=== PATIENT | female | born 1960 | race Caucasian/White ===

== ENCOUNTER → 2016-03-01 | Outpatient (CLI) | payer MEDICARE, MEDICAID ==
[2016-03-01 19:15] LABS: CREATININE FOR GFR 1.03 MG/DL (0.55-1.02); GLOMERULAR FILTRATION RATE 59.7 (>51); POTASSIUM SERUM 4.3 MEQ/L (3.5-5.1)
== END ==
LOC: M SMT 15:14
PROVIDERS: ATTEND Physician Assistant Medical
DX: N18.3 Chronic kidney disease, stage 3 (moderate) (principal)

== ENCOUNTER → 2016-06-13 | Outpatient (CLI) | payer MEDICARE, MEDICAID ==
--- NOTE | 2016-06-13 16:47 | REP ---
MRI left ankle without contrast: History: Decreased range of motion and pain. Possible tendon tear. Comparison radiographs of the right foot are from May 14, 2014. Technique: Axial, coronal and sagittal imaging planes utilized for T1, proton density and T2-weighted scans obtained in the usual fashion with and without fat saturation. MRI findings: There is a regional marrow edema pattern in the lateral aspect of the anterior calcaneus. This may reflect stress response. No overt fracture is seen. There is evidence of pes planus. There is marrow edema on either side of an osteoarthritic talonavicular articulation and the naviculocuboid articulation is similarly affected with joint space narrowing, irregularity and marrow edema. The tibial plafond and the talar dome appear intact. No osteochondral defect lesion is seen. There is small subcortical cyst formation in the medial aspect of the posterior talus. No ligament disruption is appreciated. There is marked attenuation or thinning of the distal tibialis posterior tendon consistent with a chronic tear. The flexor digitorum and flexor hallicis longus tendons appear to be intact. Peroneus longus and brevis tendons are unremarkable. No extensor tendinopathy is seen. The Achilles tendon shows some internal increased signal intensity on T1 and T2-weighted scans consistent with Achilles tendinopathy. No juxtaarticular cyst or mass is observed. Impression: 1. 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 2. Stress reaction or stress response marrow edema in the lateral aspect of the calcaneus. 3. Marked thinning of the distal tibialis posterior tendon consistent with chronic tear advanced tendinopathy. 4. Achilles tendonitis tendinosis change. Signed by Damián Iqbal MD 06/13/2016 05:09 P
== END ==
LOC: M RAD 14:17
PROVIDERS: ATTEND Podiatrist
DX: M19.071 Primary osteoarthritis, right ankle and foot (principal); M76.62 Achilles tendinitis, left leg

== ENCOUNTER → 2016-07-04 | Outpatient (CLI) | payer MEDICARE, MEDICAID ==
[2016-07-04 21:13] LABS: ALBUMIN 4.3 GM/DL (3.2-5.2); ALBUMIN/GLOBULIN RATIO 1.95 (1.00-1.93); BILIRUBIN,TOTAL 0.2 MG/DL (0.2-1.0); CALCIUM LEVEL 9.1 MG/DL (8.5-10.1); CREATININE FOR GFR 1.24 MG/DL (0.55-1.02); FREE T4 1.41 NG/DL (0.76-1.46); GLOMERULAR FILTRATION RATE 48.2 (>51); POTASSIUM SERUM 4.7 MEQ/L (3.5-5.1); TOTAL PROTEIN 6.5 GM/DL (6.4-8.2)
== END ==
LOC: M SMT 13:39
PROVIDERS: ATTEND Physician Assistant Medical
DX: E78.5 Hyperlipidemia, unspecified (principal); E66.9 Obesity, unspecified

== ENCOUNTER → 2016-08-03 | Outpatient (REF) | payer MEDICARE, MEDICAID ==
[2016-08-03 17:34] LABS: ALBUMIN 4.4 GM/DL (3.2-5.2); ALBUMIN/GLOBULIN RATIO 1.83 (1.00-1.93); BILIRUBIN,TOTAL 0.3 MG/DL (0.2-1.0); CALCIUM LEVEL 8.8 MG/DL (8.5-10.1); CREATININE FOR GFR 1.27 MG/DL (0.55-1.02); GLOMERULAR FILTRATION RATE 46.9 (>51); TOTAL PROTEIN 6.8 GM/DL (6.4-8.2)
[2016-08-03 17:40] LABS: POTASSIUM SERUM 5.2 MEQ/L (3.5-5.1)
== END ==
LOC: M SFHCPLAZ 11:24
PROVIDERS: ATTEND Physician Assistant Medical
DX: N18.3 Chronic kidney disease, stage 3 (moderate) (principal)

== ENCOUNTER → 2016-08-31 | Outpatient (REF) | payer MEDICARE, MEDICAID ==
[2016-08-31 13:59] LABS: ALBUMIN 3.9 GM/DL (3.2-5.2); ALBUMIN/GLOBULIN RATIO 1.5 (1.00-1.93); BILIRUBIN,TOTAL 0.3 MG/DL (0.2-1.0); CREATININE FOR GFR 1.07 MG/DL (0.55-1.02); GLOMERULAR FILTRATION RATE 56.9 (>51); POTASSIUM SERUM 4.3 MEQ/L (3.5-5.1); TOTAL PROTEIN 6.5 GM/DL (6.4-8.2)
== END ==
LOC: M SFHCPLAZ 09:37
PROVIDERS: ATTEND Physician Assistant Medical
DX: E78.5 Hyperlipidemia, unspecified (principal); N18.3 Chronic kidney disease, stage 3 (moderate)

== ENCOUNTER → 2016-10-03 | Outpatient (REF) | payer MEDICARE, MEDICAID ==
[2016-10-03 16:51] LABS: BASO % 0.6 % (0.0-1.0); EOS # 0.1 K/mm3 (0.0-0.50); EOS % 2.5 % (0.0-3.0); LARGE UNSTAINED CELL # 0.1 K/mm3 (0.0-0.4); LARGE UNSTAINED CELL % 1.5 % (0.0-4.0); LYMPH # 1.5 K/mm3 (1.5-4.5); LYMPH % 29.8 % (24.0-44.0); MEAN CORPUSCULAR HEMOGLOBIN 31.8 pg (27.0-33.0); MEAN CORPUSCULAR HGB CONC 33.2 g/dl (32.0-36.5); MEAN CORPUSCULAR VOLUME 95.9 fl (80.0-96.0); MONO # 0.5 K/mm3 (0.0-0.8); MONO % 10.5 % (0.0-5.0); NEUTROPHILS # 2.7 K/mm3 (1.8-7.7); NEUTROPHILS % 55.1 % (36.0-66.0); PLATELET COUNT, AUTOMATED 250 k/mm3 (150-450); WHITE BLOOD COUNT 4.9 K/mm3 (4.0-10.0)
[2016-10-03 18:43] LABS: MAGNESIUM LEVEL 2.3 MG/DL (1.8-2.4)
[2016-10-05 13:51] LABS: ANION GAP 11 MEQ/L (8-16); BLOOD UREA NITROGEN 13 MG/DL (7-18); CALCIUM LEVEL 8.7 MG/DL (8.5-10.1); CARBON DIOXIDE LEVEL 25 MEQ/L (21-32); CHLORIDE LEVEL 106 MEQ/L (98-107); CREATININE FOR GFR 0.98 MG/DL (0.55-1.02); GLOMERULAR FILTRATION RATE > 60.0 (>51); GLUCOSE, FASTING 77 MG/DL (70-105); SODIUM LEVEL 142 MEQ/L (136-145)
== END ==
LOC: M SFHCPLAZ 11:33
PROVIDERS: ATTEND Physician Assistant Medical
DX: N18.3 Chronic kidney disease, stage 3 (moderate) (principal); E55.9 Vitamin D deficiency, unspecified
CPT/HCPCS: 80048; 82306; 83735; 83970; 85025; G0463

== ENCOUNTER → 2016-10-10 | Outpatient (CLI) | payer MEDICARE, MEDICAID ==
--- NOTE | 2016-10-10 16:03 | REP ---
Renal and bladder ultrasound: The right kidney is normal size measuring 11.6 x 4.5 x 4.9 cm. Left kidney is in the low normal size range measuring 9.9 x 6.0 x 5.5 cm. Renal cortical echogenicity is normal bilaterally. There is no hydronephrosis on the right on the left. There are no renal calculi, masses or cysts on the right on the left. Impression: Essentially negative renal ultrasound. Bladder ultrasound: The bladder is incompletely distended cannot be evaluated at this time. Signed by Xander Hester MD 10/10/2016 03:54 P
== END ==
LOC: M RAD 14:09
PROVIDERS: ATTEND Physician Assistant Medical
DX: N18.3 Chronic kidney disease, stage 3 (moderate) (principal)

== ENCOUNTER → 2017-03-21 | Outpatient (CLI) | payer MEDICARE, MEDICAID | LOC: M RAD 13:00 | DX: M76.72 Peroneal tendinitis, left leg (principal); M76.822 Posterior tibial tendinitis, left leg | CPT/HCPCS: 73721 ==

== ENCOUNTER → 2017-04-20 | Outpatient (REF) | payer MEDICARE, MEDICAID ==
[2017-04-20 18:03] LABS: TOTAL 25(OH) VITAMIN D 86.5 NG/ML (30.0-100.0)
[2017-04-20 18:03] LABS: PTH INTACT 39.1 PG/ML (18.5-88.0)
== END ==
LOC: M SFHCPLAZ 15:34
DX: E55.9 Vitamin D deficiency, unspecified (principal)
CPT/HCPCS: 82306

== ENCOUNTER → 2017-11-19 | Outpatient (CLI) | payer MEDICARE, MEDICAID ==
[2017-11-19 17:49] LABS: HEMATOCRIT 38.6 % (36.0-47.0); HEMOGLOBIN 12.5 g/dl (12.0-15.5); MEAN CORPUSCULAR HEMOGLOBIN 30.3 pg (27.0-33.0); MEAN CORPUSCULAR HGB CONC 32.4 g/dl (32.0-36.5); MEAN CORPUSCULAR VOLUME 93.5 fl (80.0-96.0); PLATELET COUNT, AUTOMATED 252 10^3/uL (150-450); RED BLOOD COUNT 4.13 10^6/uL (4.00-5.40); RED CELL DISTRIBUTION WIDTH 13.1 % (11.5-14.5); WHITE BLOOD COUNT 7.2 10^3/uL (4.0-10.0)
[2017-11-19 17:59] LABS: PROTHROMBIN TIME 12.2 SECONDS (12.1-14.4)
[2017-11-19 18:00] LABS: PARTIAL THROMBOPLASTIN TIME 27.8 SECONDS (25.4-37.6)
[2017-11-19 18:01] LABS: ALBUMIN 4.2 GM/DL (3.2-5.2); ALBUMIN/GLOBULIN RATIO 1.56 (1.00-1.93); ALKALINE PHOSPHATASE 45 U/L (45-117); ALT/SGPT 21 U/L (12-78); ANION GAP 8 MEQ/L (8-16); AST/SGOT 20 U/L (7-37); BILIRUBIN,TOTAL 0.3 MG/DL (0.2-1.0); BLOOD UREA NITROGEN 28 MG/DL (7-18); CALCIUM LEVEL 9.1 MG/DL (8.5-10.1); CARBON DIOXIDE LEVEL 27 MEQ/L (21-32); CHLORIDE LEVEL 109 MEQ/L (98-107); CREATININE FOR GFR 1.17 MG/DL (0.55-1.30); GLOMERULAR FILTRATION RATE 51.1 (>51); GLUCOSE, FASTING 83 MG/DL (70-100); POTASSIUM SERUM 4.2 MEQ/L (3.5-5.1); SODIUM LEVEL 144 MEQ/L (136-145); TOTAL PROTEIN 6.9 GM/DL (6.4-8.2)
[2017-11-19 18:23] LABS: TOTAL 25(OH) VITAMIN D 80.1 NG/ML (30.0-100.0)
== END ==
LOC: M SMT 14:15
DX: Z01.818 Encounter for other preprocedural examination (principal); S93.305 Unspecified dislocation of left foot; E55.9 Vitamin D deficiency, unspecified; E66.01 Morbid (severe) obesity due to excess calories; Z68.51 Body mass index [BMI] pediatric, less than 5th percentile for age
CPT/HCPCS: 80053

== ENCOUNTER → 2017-12-07 | Outpatient (REF) | payer MEDICARE, MEDICAID ==
[2017-12-07 17:36] LABS: BASO % 0.5 % (0.0-1.0); EOS # 0.2 10^3/uL (0.0-0.50); EOS % 2.4 % (0.0-3.0); HEMATOCRIT 37.4 % (36.0-47.0); HEMOGLOBIN 12.2 g/dl (12.0-15.5); IMMATURE GRANULOCYTE % 0.4 % (0-3.0); LYMPH # 1.8 10^3/uL (1.5-4.5); LYMPH % 23.3 % (24.0-44.0); MEAN CORPUSCULAR HGB CONC 32.6 g/dl (32.0-36.5); MEAN CORPUSCULAR VOLUME 94.9 fl (80.0-96.0); MONO # 0.9 10^3/uL (0.0-0.8); MONO % 11.1 % (0.0-5.0); NEUTROPHILS # 4.9 10^3/uL (1.8-7.7); NEUTROPHILS % 62.3 % (36.0-66.0); PLATELET COUNT, AUTOMATED 237 10^3/uL (150-450); RED BLOOD COUNT 3.94 10^6/uL (4.00-5.40); RED CELL DISTRIBUTION WIDTH 13.2 % (11.5-14.5); WHITE BLOOD COUNT 7.8 10^3/uL (4.0-10.0)
[2017-12-07 17:54] LABS: INR 0.84; PROTHROMBIN TIME 11.6 SECONDS (12.1-14.4)
[2017-12-07 17:55] LABS: PARTIAL THROMBOPLASTIN TIME 26.9 SECONDS (25.4-37.6)
[2017-12-07 17:59] LABS: ALBUMIN 4.3 GM/DL (3.2-5.2); ALBUMIN/GLOBULIN RATIO 1.65 (1.00-1.93); ALKALINE PHOSPHATASE 45 U/L (45-117); ALT/SGPT 23 U/L (12-78); ANION GAP 9 MEQ/L (8-16); AST/SGOT 22 U/L (7-37); BILIRUBIN,TOTAL 0.3 MG/DL (0.2-1.0); BLOOD UREA NITROGEN 20 MG/DL (7-18); CALCIUM LEVEL 9.3 MG/DL (8.5-10.1); CARBON DIOXIDE LEVEL 27 MEQ/L (21-32); CHLORIDE LEVEL 109 MEQ/L (98-107); CREATININE FOR GFR 0.96 MG/DL (0.55-1.30); GLOMERULAR FILTRATION RATE > 60.0 (>51); GLUCOSE, FASTING 78 MG/DL (70-100); SODIUM LEVEL 145 MEQ/L (136-145); TOTAL PROTEIN 6.9 GM/DL (6.4-8.2)
[2017-12-13 08:39] LABS: COTININE None Detected (.); NICOTINE None Detected (.)
== END ==
LOC: M SFHCPLAZ 16:03
DX: Z01.818 Encounter for other preprocedural examination (principal); M21.42 Flat foot [pes planus] (acquired), left foot; M19.072 Primary osteoarthritis, left ankle and foot; Z79.899 Other long term (current) drug therapy
CPT/HCPCS: 80053

== ENCOUNTER 2017-12-26 05:54 | Inpatient (IN) | payer MEDICARE, MEDICAID ==
[2017-12-26] MEDS: LR 1,000 ML IV ×3 (06:50→14:30)
[2017-12-26] MEDS ORDERED: MIDAZOLAM INJ 2 MG/2 ML VIAL (J2250) As Ordered ×2 (07:01→08:15)
[2017-12-26] MEDS ORDERED: fentaNYL 100 MCG/2 ML INJECTION (J3010) As Ordered (07:01)
[2017-12-26] MEDS: MIDAZOLAM INJ 2 MG/2 ML VIAL (J2250) IV (07:17)
[2017-12-26] MEDS: fentaNYL 100 MCG/2 ML INJECTION (J3010) IV (07:17)
[2017-12-26] MEDS ORDERED: dexameTHASONE 4 MG/ML 1ML VIAL (J1100) As Ordered (08:15)
[2017-12-26] MEDS ORDERED: ROCURONIUM BROMIDE 50 MG/5 ML VIAL As Ordered (08:15)
[2017-12-26] MEDS ORDERED: ePHEDrine SULFATE 25 MG/5 ML(5MG/ML) SYRINGE As Ordered (08:15)
[2017-12-26] MEDS ORDERED: PHENYLephrine HCL 500 MCG/5 ML (100MCG/ML) SYRINGE (J2370) As Ordered ×2 (08:15→12:54)
[2017-12-26] MEDS ORDERED: PROPOFOL 200 MG/20 ML VIAL As Ordered ×3 (08:15→13:41)
[2017-12-26] MEDS ORDERED: fentaNYL 250 MCG/5 ML INJECTION (J3010) As Ordered (08:15)
[2017-12-26] MEDS ORDERED: LIDOCAINE 2% INJ 100 MG/5 ML SDV (FOR ANES.) As Ordered (08:15)
[2017-12-26] MEDS ORDERED: ONDANSETRON 4MG/2ML VIAL (J2405) As Ordered (08:15)
[2017-12-26] MEDS ORDERED: ePHEDrine INJ 50 MG/ML VIAL As Ordered (08:16)
[2017-12-26] MEDS ORDERED: HYDROmorphone HCL 2 MG/ML 1ML VIAL (J1170) As Ordered (09:54)
[2017-12-26] MEDS ORDERED: ROPIvacaine 0.5% 30 ML INJECTION (J2795 PER 1MG) (10:17)
[2017-12-26] MEDS ORDERED: dexameTHASONE 10 MG/1 ML VIAL PRES.FREE (J1100) (10:17)
[2017-12-26] MEDS ORDERED: LIDOCAINE 1% MDV 20ML VIAL (10:17)
[2017-12-26] MEDS ORDERED: NEOSTIGMINE 10 MG/10 ML VIAL (J2710) As Ordered (10:25)
[2017-12-26] MEDS ORDERED: GLYCOPYRROLATE INJ 0.2 MG/ML 2 ML VIAL As Ordered ×2 (10:25→10:26)
[2017-12-26] MEDS: ceFAZolin 2 GM/D5W 50 ML IV BAG (J0690 PER 500MG) As Ordered (12:00)
[2017-12-26] MEDS ORDERED: ONDANSETRON 4MG/2ML VIAL (J2405) IV (14:15)
[2017-12-26] MEDS ORDERED: METOCLOPRAMIDE INJ 10MG/2ML VIAL (J2765) IV (14:15)
[2017-12-26] MEDS ORDERED: fentaNYL 100 MCG/2 ML INJECTION (J3010) IV (14:15)
[2017-12-26] MEDS ORDERED: HYDROMORPHONE HCL 0.5 MG/ 0.5 ML SYRINGE (J1170 PER 1) IV (14:15)
[2017-12-26] MEDS ORDERED: FLEET ENEMA PR (14:30)
[2017-12-26] MEDS ORDERED: MORPHINE 4 MG/ML 1ML VIAL/SYRINGE (J2270) IV ×2 (14:30)
[2017-12-26] MEDS: ENDOCET PO (21:12)
[2017-12-26] MEDS: tiZANidine 4 MG TAB PO (23:23)
[2017-12-26] MEDS: GABAPENTIN 300 MG CAP PO (23:23)
[2017-12-27] MEDS: LR 1,000 ML IV (01:46)
[2017-12-27 06:55] LABS: HEMATOCRIT 31.5 % (36.0-47.0); MEAN CORPUSCULAR HEMOGLOBIN 30.9 pg (27.0-33.0); MEAN CORPUSCULAR HGB CONC 31.7 g/dl (32.0-36.5); MEAN CORPUSCULAR VOLUME 97.2 fl (80.0-96.0); PLATELET COUNT, AUTOMATED 198 10^3/uL (150-450); RED BLOOD COUNT 3.24 10^6/uL (4.00-5.40); RED CELL DISTRIBUTION WIDTH 13.3 % (11.5-14.5); WHITE BLOOD COUNT 9.5 10^3/uL (4.0-10.0)
[2017-12-27 07:20] LABS: ANION GAP 8 MEQ/L (8-16); BLOOD UREA NITROGEN 12 MG/DL (7-18); CALCIUM LEVEL 8.6 MG/DL (8.5-10.1); CARBON DIOXIDE LEVEL 29 MEQ/L (21-32); CHLORIDE LEVEL 109 MEQ/L (98-107); CREATININE FOR GFR 0.94 MG/DL (0.55-1.30); GLOMERULAR FILTRATION RATE > 60.0 (>51); GLUCOSE, FASTING 96 MG/DL (70-100); POTASSIUM SERUM 3.5 MEQ/L (3.5-5.1); SODIUM LEVEL 146 MEQ/L (136-145)
[2017-12-27] MEDS: GABAPENTIN 300 MG CAP PO ×2 (08:28→09:00)
[2017-12-27] MEDS: ENDOCET PO ×2 (08:29→13:07)
[2017-12-27] MEDS: tiZANidine 4 MG TAB PO ×2 (08:29→09:00)
[2017-12-27] MEDS ORDERED: GABAPENTIN 300 MG CAP PO (09:00)
[2017-12-27] MEDS ORDERED: ENTER DRUG NAME HERE (PATIENT'S OWN MED) PO ×2 (09:00)
[2017-12-27] MEDS ORDERED: tiZANidine 4 MG TAB PO (09:00)
[2017-12-27] MEDS: LISINOPRIL 10 MG TAB PO (09:47)
[2017-12-27] MEDS: BISACODYL 5 MG TAB PO (09:48)
[2017-12-27] MEDS: OMEPRAZOLE 20 MG CAP PO (09:48)
[2017-12-27] MEDS: VITAMIN D 1,000 INTERNATIONAL UNITS TABLET PO (09:48)
[2017-12-27] MEDS ORDERED: RIVAROXABAN 10 MG TAB (XARELTO) PO (18:00)
[2017-12-27] MEDS ORDERED: EZETIMIBE 10 MG TAB (ZETIA) PO (21:00)
[2017-12-27] MEDS ORDERED: SIMVASTATIN 40 MG TAB PO (21:00)
[2017-12-28] MEDS ORDERED: ENTER DRUG NAME HERE (PATIENT'S OWN MED) PO (09:00)
== END 2017-12-27 16:30 | disposition home or self-care (01) | DRG 505 ==
LOC: M OR 05:54 → M MS5PR 14:50
PROC: 0SGJ04Z Fusion of Left Tarsal Joint with Internal Fixation Device, Open Approach (ICD-10-PCS; principal; 2017-12-26 07:30)
PROC: 0SGJ07Z Fusion of Left Tarsal Joint with Autologous Tissue Substitute, Open Approach (ICD-10-PCS; 2017-12-26 07:30)
PROC: 0SBJ0ZZ Excision of Left Tarsal Joint, Open Approach (ICD-10-PCS; 2017-12-26 07:30)
DX: M21.42 Flat foot [pes planus] (acquired), left foot (principal); K44.9 Diaphragmatic hernia without obstruction or gangrene; I12.9 Hypertensive chronic kidney disease with stage 1 through stage 4 chronic kidney disease, or unspecified chronic kidney disease; M17.0 Bilateral primary osteoarthritis of knee; E55.9 Vitamin D deficiency, unspecified; E78.5 Hyperlipidemia, unspecified; N18.3 Chronic kidney disease, stage 3 (moderate); J30.9 Allergic rhinitis, unspecified; M84.472D Pathological fracture, left ankle, subsequent encounter for fracture with routine healing; G47.33 Obstructive sleep apnea (adult) (pediatric); Z96.653 Presence of artificial knee joint, bilateral; Z87.891 Personal history of nicotine dependence; Z88.5 Allergy status to narcotic agent; Z88.8 Allergy status to other drugs, medicaments and biological substances

== ENCOUNTER → 2018-03-01 | Outpatient (REF) | payer MEDICARE, MEDICAID ==
[~2018-03-01] MED LIST: DULC5TAB PO; ENDO5TAB PO; EZET1TAB10 PO; EZET1TAB7 PO; GABA-843 PO; INDOCET PO; LISI10TA4 PO; OMEP40CA2 PO; OXAP600T PO; TIZA4CAP PO; TYLE-45 PO; VITA50005 PO; XARE10TA PO
[2018-03-01 16:57] LABS: BASO # 0.1 10^3/uL (0.0-0.2); BASO % 0.7 % (0.0-1.0); EOS # 0.2 10^3/uL (0.0-0.50); EOS % 2.8 % (0.0-3.0); HEMATOCRIT 35.7 % (36.0-47.0); HEMOGLOBIN 11.5 g/dl (12.0-15.5); LYMPH % 25.8 % (24.0-44.0); MEAN CORPUSCULAR HEMOGLOBIN 29.9 pg (27.0-33.0); MEAN CORPUSCULAR HGB CONC 32.2 g/dl (32.0-36.5); MONO # 0.8 10^3/uL (0.0-0.8); MONO % 9.8 % (0.0-5.0); NEUTROPHILS # 4.6 10^3/uL (1.8-7.7); NEUTROPHILS % 60.1 % (36.0-66.0); PLATELET COUNT, AUTOMATED 230 10^3/uL (150-450); RED BLOOD COUNT 3.84 10^6/uL (4.00-5.40); WHITE BLOOD COUNT 7.6 10^3/uL (4.0-10.0)
[2018-03-01 17:23] LABS: ERYTHROCYTE SEDIMENTATION RATE 14 mm/hr (0-30)
== END ==
LOC: M LABDRAW1 15:50
PROVIDERS: ATTEND Orthopaedic Surgery
DX: Z47.89 Encounter for other orthopedic aftercare (principal)

== ENCOUNTER → 2018-03-21 | Outpatient (REF) | payer MEDICARE, MEDICAID | LOC: M LABDRAW1 16:10 | PROVIDERS: ATTEND Orthopaedic Surgery | DX: Z47.89 Encounter for other orthopedic aftercare (principal) ==

== ENCOUNTER → 2018-05-28 | Outpatient (CLI) | payer MEDICARE, MEDICAID ==
[2018-05-28 18:00] LABS: ALBUMIN 4.3 GM/DL (3.2-5.2); BILIRUBIN,TOTAL 0.3 MG/DL (0.2-1.0); CALCIUM LEVEL 9.3 MG/DL (8.5-10.1); CREATININE FOR GFR 1.11 MG/DL (0.55-1.30); GLOMERULAR FILTRATION RATE 54.3 (>51); POTASSIUM SERUM 4.3 MEQ/L (3.5-5.1); TOTAL PROTEIN 6.5 GM/DL (6.4-8.2)
[2018-05-28 18:09] LABS: PTH INTACT 38.2 PG/ML (18.5-88.0); TOTAL 25(OH) VITAMIN D 88.3 NG/ML (30.0-100.0)
[2018-05-28 18:24] LABS: HEMOGLOBIN A1c 6.1 %
== END ==
LOC: M SMT 15:53
PROVIDERS: ATTEND Physician Assistant Medical
DX: N18.3 Chronic kidney disease, stage 3 (moderate) (principal); E66.9 Obesity, unspecified; E55.9 Vitamin D deficiency, unspecified

== ENCOUNTER → 2018-06-05 | Outpatient (CLI) | payer MEDICARE, MEDICAID ==
--- NOTE | 2018-06-05 15:15 | REP ---
Bilateral lower extremity Doppler venous reflux study: right left CFV Reflux no yes Ant. Acc. GSV Present no no Reflux no no Greater saph/fem junction 6.0 mm no 8.3 mm yes Greater saph vein mid thigh 5.7 mm no 5.6 mm yes Greater saph vein at knee 4.8 mm minimal 5.0 mm yes Greater saph vein below knee -- mm -- -- mm -- SFV PROX -- mm no -- mm minimal SFV MID -- mm no -- mm yes SFV DISTAL -- mm yes -- mm minimal POPLITEAL VEIN -- mm no -- mm no LSV 3 mm no 3.1 mm no Right lower extremity: There is significant reflux below the knee with deep system reflux at the distal superficial femoral vein. No reflux above this level. There is no reflux in the greater saphenous vein at the mid calf. Left lower extremity: There is significant greater saphenous vein reflux only with the patient bed tipped, not visible one the patient standing, likely because the hydrostatic pressure is too high. There is deep system reflux throughout. Electronically Signed by Xander Hester MD 06/05/2018 03:07 P
== END ==
LOC: M RAD 12:44
PROVIDERS: ATTEND Physician Assistant
DX: T81.30XA Disruption of wound, unspecified, initial encounter (principal); Y83.8 Other surgical procedures as the cause of abnormal reaction of the patient, or of later complication, without mention of misadventure at the time of the procedure; I87.9 Disorder of vein, unspecified

== ENCOUNTER → 2018-07-12 | Outpatient (CLI) | payer MEDICARE, MEDICAID ==
[~2018-07-12] MED LIST changes: +ISOVUE-370 76% 100ML VIAL (Q9967) As Ordered ONE
--- NOTE | 2018-07-12 17:00 | REP ---
CT abdomen and pelvis with IV, dual-phase post injection imaging. No oral contrast. History: Venous insufficiency. Rule out May-Thurner syndrome. CT technique: Helical scanning is acquired at portal venous phase and delayed venous phase timed acquisitions. 100 ml of intravenous Isovue [address] findings: Preliminary digital steam frame operator radiograph demonstrates a normal bowel gas pattern. The lung bases are essentially clear. The liver and the spleen are normal in size homogeneous in texture. Gallbladder is surgically absent. The CBD post cholecystectomy is normal measuring 8 mm in diameter. No pancreatic abnormality is seen. There appears to be a descending duodenal diverticulum. The spleen is unremarkable. No adrenal lesion is seen. The kidneys enhance symmetrically are morphologically intact. There is no evidence of portal venous or mesenteric venous thrombosis. No retroperitoneal mass or adenopathy is seen. The iliac arteries are normal in caliber with atherosclerotic calcification. The iliac veins are located immediately posterior to their iliac arterial counter parts right and left side. Neither common iliac vein is compressed on either side to suggest a May-Thurner syndrome. The external iliac veins appear patent and normal and symmetric in caliber. Common femoral veins are unremarkable and symmetric. No abdominal wall defect is seen. Small and large bowel loops are unremarkable. Uterus is surgically absent. Urinary bladder is unremarkable. No ovarian abnormality is seen on either side. Impression: There is no evidence of vascular compression of either common iliac vein. Aortic bifurcation and iliac venous confluence structures are unremarkable. The patient is status post cholecystectomy and hysterectomy. Electronically Signed by Damián Iqbal MD 07/12/2018 06:34 P
== END ==
LOC: M RAD 13:18
PROVIDERS: ATTEND Surgery Vascular Surgery
DX: Z90.49 Acquired absence of other specified parts of digestive tract (principal); Z90.79 Acquired absence of other genital organ(s)
CPT/HCPCS: 74177; Q9967

== ENCOUNTER → 2018-09-03 | Outpatient (REF) | payer MEDICARE, MEDICAID ==
[~2018-09-03] MED LIST changes: -ISOVUE-370 76% 100ML VIAL (Q9967) As Ordered ONE
[2018-09-03 16:22] LABS: ALBUMIN 4.6 GM/DL (3.2-5.2); BILIRUBIN,TOTAL 0.3 MG/DL (0.2-1.0); CALCIUM LEVEL 9.8 MG/DL (8.5-10.1); CREATININE FOR GFR 1.19 MG/DL (0.55-1.30); POTASSIUM SERUM 4.4 MEQ/L (3.5-5.1); TOTAL PROTEIN 7.6 GM/DL (6.4-8.2)
[2018-09-03 16:44] LABS: PTH INTACT 47.6 PG/ML (18.5-88.0); TOTAL 25(OH) VITAMIN D 60.2 NG/ML (30.0-100.0)
[2018-09-03 17:38] LABS: HEMOGLOBIN A1c 6.1 %
== END ==
LOC: M SFHCPLAZ 14:34
PROVIDERS: ATTEND Physician Assistant Medical
DX: R60.9 Edema, unspecified (principal); R73.01 Impaired fasting glucose; E55.9 Vitamin D deficiency, unspecified
CPT/HCPCS: 36415; 80053; 82306; 83036; 83970; G0463

== ENCOUNTER → 2018-12-04 | Outpatient (REF) | payer MEDICARE, MEDICAID ==
[2018-12-04 15:57] LABS: ALBUMIN 4.3 GM/DL (3.2-5.2); BILIRUBIN,TOTAL 0.4 MG/DL (0.2-1.0); CALCIUM LEVEL 9.2 MG/DL (8.5-10.1); CHOLESTEROL RISK RATIO 2.593 (<5); CREATININE FOR GFR 1.42 MG/DL (0.55-1.30); GLOMERULAR FILTRATION RATE 40.7 (>51); POTASSIUM SERUM 4.6 MEQ/L (3.5-5.1); TOTAL PROTEIN 6.7 GM/DL (6.4-8.2)
== END ==
LOC: M SFHCPLAZ 14:49
PROVIDERS: ATTEND Physician Assistant Medical
DX: E78.5 Hyperlipidemia, unspecified (principal); R73.01 Impaired fasting glucose; R60.9 Edema, unspecified; R07.81 Pleurodynia

== ENCOUNTER → 2018-12-04 | Outpatient (CLI) | payer MEDICARE, MEDICAID ==
[~2018-12-04] MED LIST changes: -EZET1TAB7 PO; +EZET1TAB8 PO; -OMEP40CA2 PO; +OMEP40CA97 PO
--- NOTE | 2018-12-04 19:42 | REP ---
LEFT RIB SERIES: Four views of the left ribs are performed. The study is limited due to patient body habitus. No gross fracture or bone lesion is seen. IMPRESSION: Grossly negative left rib series. Electronically Signed by Xander Lowe MD 12/06/2018 09:09 A
--- NOTE | 2018-12-04 19:44 | REP ---
CHEST, TWO VIEWS: Two views of the chest is performed. I see no evidence of acute infiltrate. There appears to be mild bibasilar fibrotic change. I suspect a nodular density in the left upper lobe 1.2 cm in diameter. Heart is not enlarged. Mediastinal silhouette appears unremarkable. There are diffuse degenerative changes of the spine. IMPRESSION: Possible left upper lobe nodule 1.2 cm in diameter. Recommend CT of the chest to further evaluate. Electronically Signed by Xander Lowe MD 12/06/2018 09:09 A
== END ==
LOC: M RAD 18:35
PROVIDERS: ATTEND Physician Assistant Medical
DX: R07.81 Pleurodynia (principal); I12.9 Hypertensive chronic kidney disease with stage 1 through stage 4 chronic kidney disease, or unspecified chronic kidney disease; N18.3 Chronic kidney disease, stage 3 (moderate); R73.01 Impaired fasting glucose
CPT/HCPCS: 36415; 71046; 71100; 80053; 80061; 83036; 85379; G0463

== ENCOUNTER → 2018-12-05 | Outpatient (CLI) | payer MEDICARE, MEDICAID ==
[~2018-12-05] MED LIST changes: +ISOVUE-370 76% 100ML VIAL (Q9967) As Ordered ONE
--- NOTE | 2018-12-05 09:09 | REP ---
CT of the chest with IV contrast, CT pulmonary angiography: There are no emboli in the pulmonary trunk or central pulmonary arteries. There are no emboli in the pulmonary lobe or segment branches. There are no infiltrates. No pleural effusions. There is a left upper lobe 11 mm nodule on image 22 corresponding to the faintly visible nodular density on the PA and lateral plain film study of 12/04/2018. There is no mediastinal, hilar or axillary lymphadenopathy. The thoracic aorta is unremarkable. Cardiac size is normal. There is no pericardial effusion. The visualized upper abdominal contents are unremarkable. There are no rib fractures. There is osteoarthritis in the left costovertebral joints at T10 and T11. At T10 there is gas within the joint space has a degenerative change. I believe there is a minimal amount of gas in the T11 joint space. Impression: No pulmonary emboli. Left upper lobe lung nodule as described. No infiltrates or pleural effusions. Osteoarthritis in the costovertebral joints at T11 and T10 on the left. There is gas within both of these joint spaces as a degenerative change. There is degenerative disc disease throughout the thoracic spine. Electronically Signed by Xander Hester MD 12/05/2018 09:01 A
== END ==
LOC: M RAD 07:41
PROVIDERS: ATTEND Physician Assistant Medical
DX: R91.1 Solitary pulmonary nodule (principal); M47.814 Spondylosis without myelopathy or radiculopathy, thoracic region; N18.3 Chronic kidney disease, stage 3 (moderate); R07.81 Pleurodynia
CPT/HCPCS: 71275; Q9967

== ENCOUNTER → 2018-12-11 | Outpatient (REF) | payer MEDICARE, MEDICAID ==
[~2018-12-11] MED LIST changes: -ISOVUE-370 76% 100ML VIAL (Q9967) As Ordered ONE
[2018-12-11 17:22] LABS: BASO % 0.7 % (0.0-1.0); EOS # 0.1 10^3/uL (0.0-0.5); EOS % 1.2 % (0.0-3.0); HEMATOCRIT 37.1 % (36.0-47.0); LYMPH # 1.7 10^3/uL (1.5-5.0); LYMPH % 27.7 % (24.0-44.0); MEAN CORPUSCULAR HEMOGLOBIN 30.5 pg (27.0-33.0); MEAN CORPUSCULAR HGB CONC 32.3 g/dl (32.0-36.5); MEAN CORPUSCULAR VOLUME 94.2 fl (80.0-96.0); MONO # 0.7 10^3/uL (0.0-0.8); MONO % 10.7 % (0.0-5.0); NEUTROPHILS # 3.6 10^3/uL (1.5-8.5); NEUTROPHILS % 59.4 % (36.0-66.0); PLATELET COUNT, AUTOMATED 225 10^3/uL (150-450); RED BLOOD COUNT 3.94 10^6/uL (4.00-5.40); WHITE BLOOD COUNT 6.1 10^3/uL (4.0-10.0)
== END ==
LOC: M SFHCPLAZ 13:57
PROVIDERS: ATTEND Physician Assistant Medical
DX: G25.81 Restless legs syndrome (principal); M99.02 Segmental and somatic dysfunction of thoracic region
CPT/HCPCS: 36415; 83735; 85025; 98927; G0463

== ENCOUNTER → 2019-02-14 | Outpatient (CLI) | payer MEDICARE, MEDICAID ==
[~2019-02-14] MED LIST changes: +ISOVUE-370 76% 100ML VIAL (Q9967) As Ordered ONE
--- NOTE | 2019-02-14 19:00 | REP ---
HISTORY: Followup lung nodule. COMPARISON: 12/05/2018. CONTRAST: 100 mL Isovue-370 Mediastinum and pulmonary avi are unchanged. There is no evidence of a mass or adenopathy. There is no change in the imaged upper abdomen or imaged osseous structures. Evaluation of the lung schulte shows a slightly irregular 1.1 x 0.7 cm size nodule. There are chronic bilateral lung base changes. There are no pleural or pericardial effusions. IMPRESSION: There is a nodule in the left upper lobe as described above. Although it does not appear to have increased in size significantly compared to the prior examination which was obtained only two months ago, the margins of the nodule may have changed, increasing its suspicion. CT/PET is recommended. Electronically Signed by Stanislaw Patterson DO 02/14/2019 07:34 P
== END ==
LOC: M RAD 16:48
PROVIDERS: ATTEND Physician Assistant Medical
DX: R91.1 Solitary pulmonary nodule (principal)
CPT/HCPCS: 71260; Q9967

== ENCOUNTER → 2019-02-17 | Outpatient (CLI) | payer MEDICARE, MEDICAID ==
[~2019-02-17] MED LIST changes: -ISOVUE-370 76% 100ML VIAL (Q9967) As Ordered ONE
--- NOTE | 2019-02-20 09:14 | REPMRS ---
Patient History The patient states she has not had a clinical breast exam in over a year. Patient is postmenopausal and is nulliparous. Family history of endometrial cancer at age 50 in mother, colorectal cancer at age 89 in mother, endometrial cancer at age 45 in sister. 3D TOMOSYNTHESIS WAS PERFORMED. The [facility] lifetime risk for breast cancer is 6.4%. Digital Woman Screen Mammo: February 17, 2019 - Exam #: [id number] Bilateral CC and MLO view(s) were taken. Technologist: Liliya Bella, Technologist Prior study comparison: September 01, 2016, bilateral digital mammo screening bilat, performed at [facility]. FINDINGS: There are scattered fibroglandular densities. There has been no change in the appearance of the mammogram from the prior studies. There is a mild amount of residual fibroglandular tissue which is fairly symmetric. There is no interval development of dominant mass, architectural distortion, or clustered microcalcification suggestive of malignancy. Assessment: BI-RADS/ACR category 1 mammogram. Negative Mammogram. Recommendation Routine screening mammogram in 1 year (for women over age 40). This mammogram was interpreted with the aid of an FDA-approved computer-aided dectection system. Electronically Signed By: Xander Lowe MD 02/20/19 [id number]
== END ==
LOC: M WHC 13:36
PROVIDERS: ATTEND Physician Assistant Medical
DX: Z12.31 Encounter for screening mammogram for malignant neoplasm of breast (principal)

== ENCOUNTER → 2019-03-05 | Outpatient (CLI) | payer MEDICARE, MEDICAID ==
[~2019-03-05] MED LIST changes: +ASPI81TA85 PO; +ENDO10TA8 PO; +GUAI1TAB72 PO
== END ==
LOC: M PLARAD 12:08
PROVIDERS: ATTEND Physician Assistant Medical
DX: R91.1 Solitary pulmonary nodule (principal)

== ENCOUNTER → 2019-03-25 | Outpatient (CLI) | payer MEDICARE, MEDICAID ==
--- NOTE | 2019-03-25 18:34 | REP ---
Whole body PET CT scan: The studies performed to evaluate a left upper lobe lung nodule identified by CT on 12/05/2018. Whole body PET CT scanning is performed from skull base to the upper thighs. Neck and supraclavicular areas: There are no hypermetabolic foci. There is artifactual uptake in lymph nodes, salivary glands and dentition anteriorly in the mouth. Chest: The there is no radiotracer uptake in the left upper lobe lung nodule. The maximal standard uptake value is 1.4. There are no other hypermetabolic foci in the chest. Abdomen, pelvis and upper thighs: There are no hypermetabolic foci. Specifically there are no adrenal or hepatic foci. The study is technically difficult because of patient body habitus. Impression: There are no hypermetabolic foci. The right upper lobe lung nodule demonstrates no radiotracer uptake. The study is performed with 8.57 mCi of F 18 FDG. Electronically Signed by Xander Hester MD 03/25/2019 06:25 P
== END ==
LOC: M PLARAD 09:59
PROVIDERS: ATTEND Physician Assistant Medical
DX: R91.1 Solitary pulmonary nodule (principal)
CPT/HCPCS: 78815; A9552

== ENCOUNTER → 2019-04-30 | Outpatient (REF) | payer MEDICARE, MEDICAID ==
[2019-04-30 17:25] LABS: ALBUMIN 4.3 GM/DL (3.2-5.2); BILIRUBIN,TOTAL 0.3 MG/DL (0.2-1.0); CREATININE FOR GFR 1.44 MG/DL (0.55-1.30); GLOMERULAR FILTRATION RATE 40.1 (>51); POTASSIUM SERUM 4.9 MEQ/L (3.5-5.1); TOTAL PROTEIN 6.8 GM/DL (6.4-8.2)
[2019-04-30 17:32] LABS: TOTAL 25(OH) VITAMIN D 55.5 NG/ML (30.0-100.0)
[2019-04-30 17:33] LABS: PTH INTACT 94.2 PG/ML (18.5-88.0)
[2019-04-30 17:35] LABS: HEMOGLOBIN A1c 6.2 %
== END ==
LOC: M SFHCPLAZ 14:04
PROVIDERS: ATTEND Physician Assistant Medical
DX: R73.01 Impaired fasting glucose (principal); E55.9 Vitamin D deficiency, unspecified
CPT/HCPCS: 36415; 80053; 82306; 83036; 83970; G0463

== ENCOUNTER → 2019-09-02 | Outpatient (REF) | payer MEDICARE, MEDICAID ==
[2019-09-02 17:53] LABS: ALBUMIN 4.4 GM/DL (3.2-5.2); BILIRUBIN,TOTAL 0.3 MG/DL (0.2-1.0); CALCIUM LEVEL 9.4 MG/DL (8.5-10.1); CREATININE FOR GFR 1.53 MG/DL (0.55-1.30); GLOMERULAR FILTRATION RATE 37.2 (>51); POTASSIUM SERUM 4.8 MEQ/L (3.5-5.1); TOTAL PROTEIN 6.9 GM/DL (6.4-8.2)
[2019-09-02 18:00] LABS: PTH INTACT 100.8 PG/ML (18.5-88.0); TOTAL 25(OH) VITAMIN D 38.7 NG/ML (30.0-100.0)
[2019-09-02 18:23] LABS: HEMOGLOBIN A1c 6.2 %
== END ==
LOC: M SFHCPLAZ 15:42
PROVIDERS: ATTEND Physician Assistant Medical
DX: N18.3 Chronic kidney disease, stage 3 (moderate) (principal); R73.01 Impaired fasting glucose; E55.9 Vitamin D deficiency, unspecified

== ENCOUNTER → 2019-09-16 | Outpatient (CLI) | payer MEDICARE, MEDICAID ==
[~2019-09-16] MED LIST changes: -ASPI81TA85 PO; +ASPI81TA86 PO; +ISOVUE-370 76% 100ML VIAL As Ordered ONE
--- NOTE | 2019-09-16 10:17 | REP ---
Clinical: Follow-up pulmonary nodule. Technique: Axial contrast enhanced images from the thoracic inlet to the upper abdomen using 75 ml Isovue 370 intravenous contrast material coronal and sagittal re-formations. Comparison: 02/14/2019. Findings: 11 mm noncalcified nodule in the left upper lobe remains stable. Minimal chronic fibroatelectatic changes at the bilateral bases and primarily involving the medial right middle lobe and lingula remain unchanged. No acute consolidation, new nodule or mass lesion. No effusion. No pneumothorax. Tracheobronchial tree is patent. No adenopathy. The mediastinum demonstrates normal / stable thoracic aorta, pulmonary vasculature, and heart/pericardium. Limited upper abdomen demonstrates normal bilateral adrenal glands. Surrounding musculoskeletal structures demonstrate degenerative changes without acute osseous abnormality. Impression: Stable 11 mm noncalcified nodule in the left upper lobe and scattered chronic fibroatelectatic changes. No new or significant mediastinal / pleuroparenchymal process. Electronically Signed by Jeronimo Pepper MD 09/16/2019 10:09 A
== END ==
LOC: M RAD 08:34
PROVIDERS: ATTEND Physician Assistant Medical
DX: R91.1 Solitary pulmonary nodule (principal)
CPT/HCPCS: 71260; Q9967

== ENCOUNTER → 2019-11-26 | Outpatient (CLI) | payer MEDICARE, MEDICAID ==
[~2019-11-26] MED LIST changes: -ISOVUE-370 76% 100ML VIAL As Ordered ONE
== END ==
LOC: M LABSMTC 12:35
PROVIDERS: ATTEND Anesthesiology
DX: Z01.812 Encounter for preprocedural laboratory examination (principal); Z20.828 Contact with and (suspected) exposure to other viral communicable diseases
CPT/HCPCS: C9803; U0003

== ENCOUNTER 2019-12-01 11:42 | Day surgery (SDC) | payer MEDICARE, MEDICAID ==
[~2019-12-01] VITALS: Ht 157.5 cm; Wt 156.5 kg
[2019-12-01] MEDS ORDERED: NS 1,000 ML IV ONE (12:15)
[2019-12-01] MEDS ORDERED: propofoL 200 MG/20 ML VIAL As Ordered ONE (13:16)
[2019-12-01] MEDS ORDERED: LIDOCAINE 2% 100MG/5ML SDV (FOR ANES.) As Ordered ONE (13:16)
--- NOTE | 2019-12-01 13:38 | ROOR ---
Patient Name: Cely Steve Procedure Date: 12/01/2019 1:06 PM Date of : 1960 Age: 59 Room: [facility] Gender: Female Note Status: Finalized Procedure: Total Colonoscopy to cecum + Bx. Indications: High risk colon cancer surveillance: Personal history of colonic polyps Providers: Jose River MD Referring MD: Miriam WILDER Requesting Provider: Medicines: Monitored Anesthesia Care Complications: No immediate complications. Procedure: Pre-Anesthesia Assessment: - The heart rate, respiratory rate, oxygen saturations, blood pressure, adequacy of pulmonary ventilation, and response to care were monitored throughout the procedure. The Colonoscope was introduced through the anus and advanced to the cecum, identified by appendiceal orifice and ileocecal valve. The colonoscopy was performed without difficulty. The patient tolerated the procedure well. The quality of the bowel preparation was good. Findings: The perianal and digital rectal examinations were normal. Non-bleeding internal hemorrhoids were found during retroflexion. The hemorrhoids were small and Grade I (internal hemorrhoids that do not prolapse). A large polyp was found at 70 cm proximal to the anus. The polyp was carpet-like. Biopsies were taken with a cold forceps for histology. The exam was otherwise without abnormality on direct and retroflexion views. Impression: - Non-bleeding internal hemorrhoids. - One large polyp at 70 cm proximal to the anus. Biopsied. - The examination was otherwise normal on direct and retroflexion views. - The exam was otherwise normal to the cecum. Recommendation: - Patient has a contact number available for emergencies. The signs and symptoms of potential delayed complications were discussed with the patient. Return to normal activities tomorrow. Written discharge instructions were provided to the patient. - Resume previous diet. - Discharge patient to home. - Continue present medications. - Await pathology results. - Telephone GI clinic for pathology results in 1 week. - Refer to a surgeon at appointment to be scheduled. - The findings and recommendations were discussed with the patient. Jose River MD Jose River MD 12/01/2019 1:38:06 PM Electronically signed by Jose River MD Number of Addenda: 0 Note Initiated On: 12/01/2019 1:06 PM Estimated Blood Loss: Estimated blood loss: none.
[2019-12-01 14:03] VITALS: BP 146/87
== END 2019-12-01 14:10 | disposition home or self-care (01) ==
LOC: M OPP 11:42
PROVIDERS: ATTEND Internal Medicine Gastroenterology
DX: Z12.11 Encounter for screening for malignant neoplasm of colon (principal); Z86.010 Personal history of colon polyps; D12.6 Benign neoplasm of colon, unspecified; K64.0 First degree hemorrhoids; I10 Essential (primary) hypertension; E78.5 Hyperlipidemia, unspecified; K58.9 Irritable bowel syndrome, unspecified; R12 Heartburn; M79.7 Fibromyalgia; F32.9 Major depressive disorder, single episode, unspecified; G47.33 Obstructive sleep apnea (adult) (pediatric); Z87.891 Personal history of nicotine dependence; Z88.5 Allergy status to narcotic agent; Z88.8 Allergy status to other drugs, medicaments and biological substances; Z91.018 Allergy to other foods; Z79.899 Other long term (current) drug therapy

== ENCOUNTER → 2020-03-18 | Outpatient (REF) | payer MEDICARE, MEDICAID ==
[~2020-03-18] MED LIST changes: +GABA-282 PO; -GABA-843 PO; +LISI10TA22 PO; -LISI10TA4 PO
[2020-03-18 17:41] LABS: HEMOGLOBIN A1c 5.9 %
[2020-03-18 17:54] LABS: PTH INTACT 98.9 PG/ML (18.5-88.0); TOTAL 25(OH) VITAMIN D 50.9 NG/ML (30.0-100.0)
== END ==
LOC: M PLALAB 14:15
PROVIDERS: ATTEND Physician Assistant Medical
DX: R73.01 Impaired fasting glucose (principal); E55.9 Vitamin D deficiency, unspecified; M67.442 Ganglion, left hand; Z79.899 Other long term (current) drug therapy

== ENCOUNTER → 2020-03-18 | Outpatient (CLI) | payer MEDICARE, MEDICAID ==
[2020-03-18 17:42] LABS: CREATININE FOR GFR 1.81 MG/DL (0.55-1.30); GLOMERULAR FILTRATION RATE 30.7 (>51)
== END ==
LOC: M PLALAB 14:15
PROVIDERS: ATTEND Orthopaedic Surgery
DX: M67.442 Ganglion, left hand (principal)

== ENCOUNTER → 2020-05-26 | Outpatient (REF) | payer MEDICARE, MEDICAID ==
[2020-05-26 15:31] LABS: BASO # 0.1 10^3/uL (0.0-0.2); BASO % 0.9 % (0.0-1.0); EOS # 0.1 10^3/uL (0.0-0.5); EOS % 1.9 % (0.0-3.0); HEMATOCRIT 39.9 % (36.0-47.0); HEMOGLOBIN 12.4 g/dl (12.0-15.5); LYMPH # 1.8 10^3/uL (1.5-5.0); LYMPH % 25.7 % (24.0-44.0); MEAN CORPUSCULAR HEMOGLOBIN 29.5 pg (27.0-33.0); MEAN CORPUSCULAR HGB CONC 31.1 g/dl (32.0-36.5); MONO # 0.7 10^3/uL (0.0-0.8); MONO % 10.3 % (2.0-8.0); NEUTROPHILS # 4.2 10^3/uL (1.5-8.5); NEUTROPHILS % 61.1 % (36.0-66.0); PLATELET COUNT, AUTOMATED 232 10^3/uL (150-450); WHITE BLOOD COUNT 6.8 10^3/uL (4.0-10.0)
[2020-05-26 16:01] LABS: ALBUMIN 4.3 GM/DL (3.2-5.2); BILIRUBIN,TOTAL 0.2 MG/DL (0.2-1.0); CALCIUM LEVEL 9.5 MG/DL (8.5-10.1); CREATININE FOR GFR 1.24 MG/DL (0.55-1.30); GLOMERULAR FILTRATION RATE 47.5 (>51); POTASSIUM SERUM 4.7 MEQ/L (3.5-5.1); TOTAL PROTEIN 6.8 GM/DL (6.4-8.2)
[2020-05-26 16:06] LABS: PTH INTACT 59.2 PG/ML (18.5-88.0)
[2020-05-26 16:16] LABS: TOTAL 25(OH) VITAMIN D 51.1 NG/ML (30.0-100.0)
== END ==
LOC: M SFHCPLAZ 14:09
PROVIDERS: ATTEND Physician Assistant Medical
DX: E55.9 Vitamin D deficiency, unspecified (principal); N18.30 Chronic kidney disease, stage 3 unspecified

== ENCOUNTER → 2020-08-18 | Outpatient (CLI) | payer MEDICARE, MEDICAID ==
[~2020-08-18] MED LIST changes: +ERGO500029 PO; -EZET1TAB10 PO; -EZET1TAB8 PO; +EZET1TAB98 PO; +OMEP40CA4 PO; -OMEP40CA97 PO; +[UNRECOGNIZED DRUG - CODE] PO
--- NOTE | 2020-08-18 15:29 | REPVR ---
PROCEDURE INFORMATION: Exam: CT Thoracic Spine Without Contrast Exam date and time: 08/18/2020 2:35 PM Age: 59 years old Clinical indication: Other: Spondylosis TECHNIQUE: Imaging protocol: Computed tomography images of the thoracic spine without contrast. Radiation optimization: All CT scans at this facility use at least one of these dose optimization techniques: automated exposure control; mA and/or kV adjustment per patient size (includes targeted exams where dose is matched to clinical indication); or iterative reconstruction. COMPARISON: PT PET/CT Skull/mid thigh 03/25/2019 12:49 PM FINDINGS: Vertebrae: Levoscoliosis. Osteopenia. Schmorl's nodes and vertebral endplate irregularity. Discs/Spinal canal/Neural foramina: Multilevel degenerative change and vacuum discs. Soft tissues: Unremarkable appearance of the paraspinous soft tissues. IMPRESSION: Levoscoliosis, Schmorl's nodes, degenerative change, and vacuum discs. Electronically signed by: Ino Fabian On 08/18/2020 15:28:46 PM
--- NOTE | 2020-08-18 15:33 | REPVR ---
PROCEDURE INFORMATION: Exam: CT Lumbar Spine Without Contrast Exam date and time: 08/18/2020 2:35 PM Age: 59 years old Clinical indication: Other: Spondylosis TECHNIQUE: Imaging protocol: Computed tomography images of the lumbar spine without contrast. Radiation optimization: All CT scans at this facility use at least one of these dose optimization techniques: automated exposure control; mA and/or kV adjustment per patient size (includes targeted exams where dose is matched to clinical indication); or iterative reconstruction. COMPARISON: PT PET/CT Skull/mid thigh 03/25/2019 12:49 PM FINDINGS: Vertebrae: No acute bony injury or malalignment. Discs/Spinal canal/Neural foramina: Multilevel spinal stenosis in association with disc bulging, degenerative change, ligamentous hypertrophy. Note that assessment of disc, spinal cord, and nerve root pathology is limited in the absence of intrathecal contrast. Multilevel vacuum discs. Soft tissues: Calcification and hypertrophy of the ligamentum flavum. IMPRESSION: Multilevel spinal stenosis in association with disc bulging, degenerative change, ligamentous hypertrophy. Electronically signed by: Ino Fabian On 08/18/2020 15:32:41 PM
== END ==
LOC: M RAD 14:17
PROVIDERS: ATTEND Physician Assistant Medical
DX: M47.816 Spondylosis without myelopathy or radiculopathy, lumbar region (principal)

== ENCOUNTER → 2020-09-01 | Outpatient (CLI) | payer MEDICARE, MEDICAID ==
[2020-09-01 17:28] LABS: BASO % 0.3 % (0.0-1.0); EOS # 0.1 10^3/uL (0.0-0.5); EOS % 0.6 % (0.0-3.0); HEMATOCRIT 43.2 % (36.0-47.0); HEMOGLOBIN 13.4 g/dl (12.0-15.5); LYMPH # 2.6 10^3/uL (1.5-5.0); LYMPH % 25.9 % (24.0-44.0); MEAN CORPUSCULAR HEMOGLOBIN 29.2 pg (27.0-33.0); MEAN CORPUSCULAR VOLUME 94.1 fl (80.0-96.0); MONO % 9.9 % (2.0-8.0); NEUTROPHILS # 6.4 10^3/uL (1.5-8.5); NEUTROPHILS % 62.6 % (36.0-66.0); PLATELET COUNT, AUTOMATED 255 10^3/uL (150-450); RED BLOOD COUNT 4.59 10^6/uL (4.00-5.40); WHITE BLOOD COUNT 10.2 10^3/uL (4.0-10.0)
[2020-09-01 17:46] LABS: ALBUMIN 4.2 GM/DL (3.2-5.2); ALT/SGPT 67 U/L (12-78); BILIRUBIN,TOTAL 0.4 MG/DL (0.2-1.0); BLOOD UREA NITROGEN 30 MG/DL (7-18); CALCIUM LEVEL 9.3 MG/DL (8.5-10.1); CARBON DIOXIDE LEVEL 30 MEQ/L (21-32); CHLORIDE LEVEL 104 MEQ/L (98-107); CREATININE FOR GFR 1.41 MG/DL (0.55-1.30); GLOMERULAR FILTRATION RATE 40.8 (>51); GLUCOSE, FASTING 76 MG/DL (70-100); POTASSIUM SERUM 4.2 MEQ/L (3.5-5.1); RHEUMATOID FACTOR QUANT < 10.0 IU/ML (<15.0); SODIUM LEVEL 143 MEQ/L (136-145); TOTAL PROTEIN 7.4 GM/DL (6.4-8.2)
[2020-09-01 17:57] LABS: HEMOGLOBIN A1c 5.9 %
[2020-09-01 17:58] LABS: ERYTHROCYTE SEDIMENTATION RATE 6 mm/hr (0-30)
[2020-09-07 21:12] LABS: ANA (HEP2) Negative (.); CYCLIC CITRULLINATED PEPTIDE 5 units (0-19); HLA-B27 Negative (.)
== END ==
LOC: M PLALAB 11:29
PROVIDERS: ATTEND Physician Assistant Medical
DX: M51.36 Other intervertebral disc degeneration, lumbar region (principal); M47.816 Spondylosis without myelopathy or radiculopathy, lumbar region; E66.9 Obesity, unspecified; Z79.899 Other long term (current) drug therapy
CPT/HCPCS: 36415; 80053; 81374; 83036; 85025; 85652; 86038; 86140; 86200; 86431; G0463

== ENCOUNTER → 2020-12-01 | Outpatient (CLI) | payer MEDICARE, MEDICAID ==
[2020-12-01 16:25] LABS: CALCIUM LEVEL 9.5 MG/DL (8.5-10.1); CREATININE FOR GFR 1.34 MG/DL (0.55-1.30); GLOMERULAR FILTRATION RATE 43.2 (>51); POTASSIUM SERUM 4.7 MEQ/L (3.5-5.1)
== END ==
LOC: M PLALAB 11:42
PROVIDERS: ATTEND Physician Assistant Medical
DX: R91.8 Other nonspecific abnormal finding of lung field (principal)
CPT/HCPCS: 36415; 80048; G0463

== ENCOUNTER → 2020-12-06 | Outpatient (CLI) | payer MEDICARE, MEDICAID ==
[~2020-12-06] MED LIST changes: +ISOVUE-370 76% 100ML VIAL ONE
--- NOTE | 2020-12-06 14:21 | REP ---
INDICATION: ABNORMAL FINDING OF LUNG FIELD COMPARISON: Multiple the latest 09/16/2019 TECHNIQUE: Standard helical technique before and after the intravenous administration of 100 cc Isovue 370 FINDINGS: The mediastinum and pulmonary avi are stable. No mass or adenopathy has developed. There are no pleural or pericardial effusions. The imaged abdomen is unchanged. Note is again made of intrahepatic ductal dilatation which is unchanged and consistent with the patient's post cholecystectomy state. The imaged osseous structures are stable. Evaluation of the lung schulte shows a stable 1.1 cm sized left upper lobe nodule. Stable inferior lingular and inferior right middle lobe curvilinear and asymmetric densities are again noted. No new abnormal nodules, masses, or opacities have developed. IMPRESSION: Stable CT examination of the chest as described above. Follow-up as per the revised Fleischner society criteria. <Electronically signed by Stanislaw Patterson > 12/06/20 [id number]
== END ==
LOC: M PLAIMG 13:15
PROVIDERS: ATTEND Physician Assistant Medical
DX: R91.8 Other nonspecific abnormal finding of lung field (principal)
CPT/HCPCS: 71270; Q9967

== ENCOUNTER → 2021-04-19 | Outpatient (CLI) | payer MEDICARE, MEDICAID ==
[~2021-04-19] MED LIST changes: +CYCL-707 PO; -ISOVUE-370 76% 100ML VIAL ONE
== END ==
LOC: M RAD 09:26
PROVIDERS: ATTEND Physician Assistant Medical
DX: N18.30 Chronic kidney disease, stage 3 unspecified (principal)

== ENCOUNTER → 2021-04-23 | Outpatient (CLI) | payer MEDICARE, MEDICAID | LOC: M LABSMTC 11:00 | PROVIDERS: ATTEND Anesthesiology | DX: Z01.818 Encounter for other preprocedural examination (principal); Z11.52 Encounter for screening for COVID-19 ==

== ENCOUNTER → 2021-06-09 | Outpatient (CLI) | payer MEDICARE, MEDICAID ==
[2021-06-09 15:24] LABS: CHOLESTEROL RISK RATIO 3.348 (<5)
== END ==
LOC: M PLALAB 12:34
PROVIDERS: ATTEND Physician Assistant Medical
DX: Z13.220 Encounter for screening for lipoid disorders (principal); Z79.899 Other long term (current) drug therapy

== ENCOUNTER → 2021-08-21 | Outpatient (CLI) | payer MEDICARE, MEDICAID ==
[~2021-08-21] MED LIST changes: +TOPI25TA10 PO
== END ==
LOC: M LABSMTC 10:22
PROVIDERS: ATTEND Anesthesiology
DX: Z01.812 Encounter for preprocedural laboratory examination (principal)

== ENCOUNTER 2021-08-24 06:50 | Day surgery (SDC) | payer MEDICARE, MEDICAID ==
[~2021-08-24] VITALS: Ht 165.1 cm; Wt 141.9 kg
[~2021-08-24 06:50] MED LIST changes: +NS 1,000 ML IV ONE
[2021-08-24] MEDS ORDERED: propofoL 200 MG/20 ML VIAL As Ordered ONE ×2 (07:26→07:57)
[2021-08-24 08:24] VITALS: BP 103/55
== END 2021-08-24 08:37 | disposition home or self-care (01) ==
LOC: M OPP 06:50
PROVIDERS: ATTEND Internal Medicine Gastroenterology
DX: Z86.010 Personal history of colon polyps (principal); K63.5 Polyp of colon; K57.30 Diverticulosis of large intestine without perforation or abscess without bleeding; K64.0 First degree hemorrhoids; Z87.891 Personal history of nicotine dependence; Z79.1 Long term (current) use of non-steroidal anti-inflammatories (NSAID); Z79.891 Long term (current) use of opiate analgesic; Z79.899 Other long term (current) drug therapy; Z88.5 Allergy status to narcotic agent; Z88.8 Allergy status to other drugs, medicaments and biological substances; Z91.018 Allergy to other foods

== ENCOUNTER → 2021-08-26 | Outpatient (CLI) | payer MEDICARE, MEDICAID ==
[~2021-08-26] MED LIST changes: -NS 1,000 ML IV ONE
== END ==
LOC: M WHC 15:32
PROVIDERS: ATTEND Physician Assistant Medical
DX: Z12.31 Encounter for screening mammogram for malignant neoplasm of breast (principal)

== ENCOUNTER → 2021-09-21 | Outpatient (CLI) | payer MEDICARE, MEDICAID ==
[2021-09-21 15:23] LABS: BASO # 0.1 10^3/uL (0.0-0.2); BASO % 0.8 % (0.0-1.0); EOS # 0.2 10^3/uL (0.0-0.5); EOS % 2.3 % (0.0-3.0); HEMATOCRIT 38.6 % (36.0-47.0); HEMOGLOBIN 12.2 g/dl (12.0-15.5); LYMPH # 2.1 10^3/uL (1.5-5.0); LYMPH % 32.1 % (24.0-44.0); MEAN CORPUSCULAR HGB CONC 31.6 g/dl (32.0-36.5); MEAN CORPUSCULAR VOLUME 91.7 fl (80.0-96.0); MONO # 0.6 10^3/uL (0.0-0.8); MONO % 9.5 % (2.0-8.0); NEUTROPHILS # 3.5 10^3/uL (1.5-8.5); PLATELET COUNT, AUTOMATED 257 10^3/uL (150-450); RED BLOOD COUNT 4.21 10^6/uL (4.00-5.40); WHITE BLOOD COUNT 6.4 10^3/uL (4.0-10.0)
[2021-09-21 16:09] LABS: CREATININE FOR GFR 1.69 MG/DL (0.55-1.30)
[2021-09-21 16:10] LABS: BILIRUBIN,TOTAL 0.2 MG/DL (0.2-1.0); CALCIUM LEVEL 9.2 MG/DL (8.5-10.1); CHOLESTEROL RISK RATIO 3.259 (<5); POTASSIUM SERUM 4.9 MEQ/L (3.5-5.1); TOTAL PROTEIN 6.8 GM/DL (6.4-8.2)
[2021-09-21 16:16] LABS: HEMOGLOBIN A1c 5.7 %
== END ==
LOC: M PLALAB 14:12
PROVIDERS: ATTEND Physician Assistant Medical
DX: E66.9 Obesity, unspecified (principal); N18.30 Chronic kidney disease, stage 3 unspecified; I10 Essential (primary) hypertension; Z13.220 Encounter for screening for lipoid disorders; Z79.899 Other long term (current) drug therapy

== ENCOUNTER → 2021-10-10 | Outpatient (CLI) | payer MEDICARE, MEDICAID ==
[2021-10-10 18:48] LABS: CALCIUM LEVEL 9.5 MG/DL (8.5-10.1); CREATININE FOR GFR 1.44 MG/DL (0.55-1.30); GLOMERULAR FILTRATION RATE 39.7 (>51); POTASSIUM SERUM 4.1 MEQ/L (3.5-5.1)
== END ==
LOC: M LAB 17:04
PROVIDERS: ATTEND Physician Assistant Medical
DX: N17.9 Acute kidney failure, unspecified (principal)

== ENCOUNTER → 2021-12-23 | Outpatient (CLI) | payer MEDICARE, MEDICAID | LOC: M RAD 14:32 | PROVIDERS: ATTEND Physician Assistant Medical | DX: R91.8 Other nonspecific abnormal finding of lung field (principal) ==

== ENCOUNTER → 2022-01-24 | Outpatient (CLI) | payer MEDICARE, MEDICAID ==
[2022-01-24 15:40] LABS: BASO # 0.1 10^3/uL (0.0-0.2); BASO % 1.1 % (0.0-1.0); EOS # 0.2 10^3/uL (0.0-0.5); EOS % 3.6 % (0.0-3.0); HEMATOCRIT 41.9 % (36.0-47.0); LYMPH # 1.8 10^3/uL (1.5-5.0); MEAN CORPUSCULAR HEMOGLOBIN 29.3 pg (27.0-33.0); MEAN CORPUSCULAR VOLUME 94.4 fl (80.0-96.0); MONO # 0.6 10^3/uL (0.0-0.8); MONO % 11.1 % (2.0-8.0); NEUTROPHILS # 2.8 10^3/uL (1.5-8.5); NEUTROPHILS % 50.8 % (36.0-66.0); PLATELET COUNT, AUTOMATED 232 10^3/uL (150-450); RED BLOOD COUNT 4.44 10^6/uL (4.00-5.40); WHITE BLOOD COUNT 5.5 10^3/uL (4.0-10.0)
[2022-01-24 16:08] LABS: POTASSIUM SERUM 4.2 MMOL/L (3.5-5.1)
[2022-01-24 16:09] LABS: ALBUMIN 4.1 G/DL (3.2-5.2)
[2022-01-24 16:14] LABS: CALCIUM LEVEL 9.2 MG/DL (8.5-10.1)
[2022-01-24 16:16] LABS: BILIRUBIN,TOTAL 0.3 MG/DL (0.3-1.2); CREATININE FOR GFR 1.18 MG/DL (0.55-1.30); GLOMERULAR FILTRATION RATE 49.9 (>51); TOTAL PROTEIN 6.4 G/DL (5.7-8.2)
== END ==
LOC: M PLALAB 12:40
PROVIDERS: ATTEND Physician Assistant Medical
DX: I10 Essential (primary) hypertension (principal)

== ENCOUNTER → 2022-06-13 | Outpatient (CLI) | payer MEDICARE, MEDICAID ==
[2022-06-13 15:42] LABS: BASO # 0.1 10^3/uL (0.0-0.2); BASO % 0.6 % (0.0-1.0); EOS # 0.2 10^3/uL (0.0-0.5); EOS % 2.7 % (0.0-3.0); HEMATOCRIT 41.3 % (36.0-47.0); HEMOGLOBIN 13.2 g/dl (12.0-15.5); LYMPH # 1.8 10^3/uL (1.5-5.0); LYMPH % 23.5 % (24.0-44.0); MEAN CORPUSCULAR HEMOGLOBIN 30.1 pg (27.0-33.0); MEAN CORPUSCULAR VOLUME 94.3 fl (80.0-96.0); MONO # 0.7 10^3/uL (0.0-0.8); NEUTROPHILS % 63.8 % (36.0-66.0); PLATELET COUNT, AUTOMATED 219 10^3/uL (150-450); RED BLOOD COUNT 4.38 10^6/uL (4.00-5.40); WHITE BLOOD COUNT 7.8 10^3/uL (4.0-10.0)
[2022-06-13 15:51] LABS: ALBUMIN 4.2 G/DL (3.2-5.2); BILIRUBIN,TOTAL 0.3 MG/DL (0.3-1.2); CALCIUM LEVEL 9.4 MG/DL (8.5-10.1); CHOLESTEROL RISK RATIO 3.61 (<5); CREATININE FOR GFR 1.22 MG/DL (0.55-1.30); HDL CHOLESTEROL 53.9 MG/DL (>40); LDL CHOLESTEROL 100.9 MG/DL (<100); NON-HDL-C 141.1 MG/DL; POTASSIUM SERUM 4.4 MMOL/L (3.5-5.1); THYROID STIMULATING HORMONE 1.336 uIU/ML (0.55-4.78); TOTAL PROTEIN 6.7 G/DL (5.7-8.2)
[2022-06-13 16:37] LABS: HEMOGLOBIN A1c 5.6 % (4.0-6.0)
== END ==
LOC: M PLALAB 12:29
PROVIDERS: ATTEND Physician Assistant Medical
DX: N18.31 Chronic kidney disease, stage 3a (principal); I12.9 Hypertensive chronic kidney disease with stage 1 through stage 4 chronic kidney disease, or unspecified chronic kidney disease; E66.9 Obesity, unspecified; Z13.220 Encounter for screening for lipoid disorders; Z79.899 Other long term (current) drug therapy

== ENCOUNTER → 2022-06-13 | Outpatient (REF) | payer MEDICARE, MEDICAID | LOC: M SFHCPLAZ 12:28 | PROVIDERS: ATTEND Physician Assistant Medical | DX: N18.31 Chronic kidney disease, stage 3a (principal); I12.9 Hypertensive chronic kidney disease with stage 1 through stage 4 chronic kidney disease, or unspecified chronic kidney disease; Z13.220 Encounter for screening for lipoid disorders; E66.9 Obesity, unspecified ==

== ENCOUNTER → 2022-06-20 | Outpatient (CLI) | payer MEDICARE, MEDICAID | LOC: M WHC 13:43 | PROVIDERS: ATTEND Physician Assistant Medical | DX: M81.0 Age-related osteoporosis without current pathological fracture (principal) ==

== ENCOUNTER → 2022-12-13 | Outpatient (CLI) | payer MEDICARE, MEDICAID ==
[~2022-12-13] MED LIST changes: -OXAP600T PO; +OXAP600T4 PO
[2022-12-13 17:28] LABS: BASO % 0.4 % (0.0-1.0); EOS # 0.1 10^3/uL (0.0-0.5); EOS % 1.1 % (0.0-3.0); HEMATOCRIT 33.5 % (36.0-47.0); HEMOGLOBIN 11.2 g/dl (12.0-15.5); LYMPH # 1.9 10^3/uL (1.5-5.0); LYMPH % 17.7 % (24.0-44.0); MEAN CORPUSCULAR HEMOGLOBIN 30.9 pg (27.0-33.0); MEAN CORPUSCULAR HGB CONC 33.4 g/dl (32.0-36.5); MEAN CORPUSCULAR VOLUME 92.5 fl (80.0-96.0); NEUTROPHILS # 7.2 10^3/uL (1.5-8.5); NEUTROPHILS % 68.4 % (36.0-66.0); PLATELET COUNT, AUTOMATED 344 10^3/uL (150-450); RED BLOOD COUNT 3.62 10^6/uL (4.00-5.40); WHITE BLOOD COUNT 10.6 10^3/uL (4.0-10.0)
[2022-12-13 17:55] LABS: C REACTIVE PROTEIN QUANTITATIV 8.6 MG/DL (<1.0)
[2022-12-13 17:57] LABS: ALBUMIN 2.9 G/DL (3.2-5.2); BILIRUBIN,TOTAL 0.3 MG/DL (0.3-1.2); CALCIUM LEVEL 8.8 MG/DL (8.3-10.6); CREATININE FOR GFR 1.01 MG/DL (0.55-1.30); GLOMERULAR FILTRATION RATE 59.5 (>45); POTASSIUM SERUM 4.1 MMOL/L (3.5-5.1); TOTAL PROTEIN 6.1 G/DL (5.7-8.2)
== END ==
LOC: M PLALAB 15:18
PROVIDERS: ATTEND Physician Assistant Medical
DX: K85.90 Acute pancreatitis without necrosis or infection, unspecified (principal); R79.89 Other specified abnormal findings of blood chemistry

== ENCOUNTER → 2022-12-26 | Outpatient (CLI) | payer MEDICARE, MEDICAID | LOC: M RAD 13:22 | PROVIDERS: ATTEND Physician Assistant Medical | DX: Z87.891 Personal history of nicotine dependence (principal); R91.1 Solitary pulmonary nodule ==

== ENCOUNTER → 2023-11-23 | Outpatient (CLI) | payer MEDICARE, MEDICAID ==
[~2023-11-23] MED LIST changes: +GABA-1172 PO; -GABA-282 PO
[2023-11-23 13:32] LABS: ALBUMIN 4.5 G/DL (3.2-5.2); BILIRUBIN,TOTAL 0.4 MG/DL (0.3-1.2); CALCIUM LEVEL 10.2 MG/DL (8.3-10.6); CREATININE FOR GFR 1.2 MG/DL (0.55-1.30); GLOMERULAR FILTRATION RATE 48.6 (>45); POTASSIUM SERUM 4.5 MMOL/L (3.5-5.1); TOTAL PROTEIN 7.3 G/DL (5.7-8.2)
== END ==
LOC: M PLALAB 11:09
PROVIDERS: ATTEND Physician Assistant Medical
DX: N18.31 Chronic kidney disease, stage 3a (principal); E83.52 Hypercalcemia

== ENCOUNTER → 2025-01-13 | Outpatient (CLI) | payer MEDICARE, MEDICAID ==
[~2025-01-13] MED LIST changes: -OXAP600T4 PO; +TOPI-256 PO; -TOPI25TA10 PO; +[UNRECOGNIZED DRUG - CODE] PO
== END ==
LOC: M RAD 10:49
PROVIDERS: ATTEND Physician Assistant Medical
DX: Z87.891 Personal history of nicotine dependence (principal); R91.1 Solitary pulmonary nodule; Z53.9 Procedure and treatment not carried out, unspecified reason

== ENCOUNTER → 2025-01-15 | Outpatient (REF) | payer MEDICARE, MEDICAID | LOC: M SFHCPLAZ 13:27 | PROVIDERS: ATTEND Physician Assistant Medical | DX: Z53.9 Procedure and treatment not carried out, unspecified reason (principal) ==